=== PATIENT | male | born 1955 | race Caucasian/White ===

== ENCOUNTER 2016-11-02 08:28 | Emergency (ER) | payer MEDICAID ==
[2016-11-02] MEDS ORDERED: ALBUTEROL INH PREPACK MDI TAKEHOME ONE (09:23)
--- NOTE | 2016-11-02 09:28 | EDPHY ---
HPI/HX/ROS/PE/MDM Narrative: Chief complaint: Cough, shortness of breath, fevers, chills, body aches HPI: 60-year-old male presenting with 1 week of flu symptoms now with a worsening cough which is productive of greenish sputum. Mild shortness of breath. Does have a hacking wheezy cough. He is a smoker. Is a recovering alcoholic. Reports no alcohol for last several months. Some subjective fevers and chills. Has had some body aches. No nausea or vomiting. No chest pain. No shortness of breath. No abdominal pain. ROS: 10 point Review of Systems is negative except as noted in the HPI. Physical exam: Gen: Awake, Alert, No Distress HEENT: Ears: Bilateral TMs are normal, no erythema or bulging. External auditory canals are clear. Nose: no rhinorrhea Eyes: PERRLA, EOMI Mouth: Moist mucosa Neck: Supple, no JVD Chest: nontender, very mild expiratory wheeze in the lower lung zones, no focal rales or rhonchi Heart: S1, S2 normal, no murmur Abd: Soft, non-tender, no guarding Back: no CVA tenderness, no midline tenderness Ext: no edema, non-tender Skin: no rash Neuro: CN II-XII intact, Sensation grossly intact, Strength 5/5 in bilateral upper and lower extremities ED Course: 60-year-old male presenting with symptoms consistent with bronchitis or early pneumonia. Does not have any focal rhonchi on exam. Is in no respiratory distress. He is otherwise well-appearing. Will discharge with an albuterol inhaler. Given prescriptions for azithromycin. Will send him home with some Zofran to go as these some ice and can make him nauseated. He has a primary care physician, Dr. Smith at [facility]. I have instructed him to follow up in about 4-5 days for re-evaluation. General Time Seen by Provider: 11/02/16 09:12 Initial Vital Signs: Initial Vital Signs Temperature (C) 37.2 C 11/02/16 08:29 Heart Rate 113 H 11/02/16 08:29 Respiratory Rate 16 11/02/16 08:29 Blood Pressure 120/86 H 11/02/16 08:29 O2 Sat (%) 91 L 11/02/16 08:29 O2 Delivery Mode Room Air Allergies/Adverse Reactions: No Known Allergies Allergy (Unverified 11/02/16 08:34) Home Medications: Medication Instructions Recorded AZITHROMYCIN [Z-PACK] 250 mg PO DAILY #6 tab 11/02/16 Ondansetron Odt [Zofran Odt 4 mg 4 mg PO Q4 PRN #10 tab 11/02/16 (*)] Seroquel 11/02/16 Departure - Departure Disposition: Home, Routine, Self-Care Clinical Impression: Acute bronchitis Condition: Good Instructions: Acute Bronchitis (ED) Additional Instructions: Please take your full course of antibiotics. You may use inhaler 2 puffs every 4 hours as needed for wheeze. Always use a spacer with your inhaler. May take ibuprofen and acetaminophen as needed for fevers, chills, aches, pains. Take the nausea medication if the antibiotic makes you feel nauseated. Follow up with your primary care physician, Dr. Smith, in about 4-5 days. Referrals: Dangelo Smith MD [Primary Care Provider] - As per Instructions Prescriptions: AZITHROMYCIN [Z-PACK] 250 mg PO DAILY #6 tab Ondansetron Odt [Zofran Odt 4 mg (*)] 4 mg PO Q4 PRN #10 tab PRN Reason: nausea
[2016-11-02 09:39] VITALS: BP 134/78; PULSE 98; RESP 15; TEMP 98.1; O2SAT 93
== END 2016-11-02 09:35 | disposition home or self-care (01) ==
DX: J20.9 Acute bronchitis, unspecified (principal)

== ENCOUNTER 2017-02-21 18:47 | Emergency (ER) | payer MEDICAID ==
--- NOTE | 2017-02-21 18:54 | EDPHY ---
H & P Time Seen by Provider: 02/21/17 18:54 - Personal History Tetanus Vaccine Date: 2011 - Medical/Surgical History Hx Asthma: No Hx Chronic Respiratory Disease: Yes Hx Diabetes: No Hx Cardiac Disease: No Hx Renal Disease: No Hx Cirrhosis: No Hx Alcoholism: Yes Hx HIV/AIDS: No Hx Splenectomy or Spleen Trauma: No Other PMH: MEDICAL- COPD, ETOH, Depression,. denies PSHx - Social History Smoking Status: Heavy smoker Allergies/Adverse Reactions: No Known Allergies Allergy (Unverified 11/02/16 08:34) Home Medications: Medication Instructions Recorded AZITHROMYCIN [Z-PACK] 250 mg PO DAILY #6 tab 11/02/16 Ondansetron Odt [Zofran Odt 4 mg 4 mg PO Q4 PRN #10 tab 11/02/16 (*)] Seroquel 11/02/16 Medical Decision Making - Diagnostics Imaging Results: Imaging Impressions Head CT 02/21/17 18:59 Impression: Stable head CT with mild atrophy. Nothing acute detected. Results called to Dr. Pearson. General information for patients regarding this examination can be found at [email or web address]. If you have questions or comments about this report, please contact me at [phone] (hospital) or [phone] (cell). Imaging: Discussed imaging studies w/ rn call center Radiologist, I viewed and interpreted images myself ED Course/Re-evaluation: CHIEF COMPLAINT: headache HISTORY OF PRESENT ILLNESS: The patient is a 61 y/o male arriving via EMS complaining of a persistent headache for the last 6 weeks. He has a history of COPD, bipolar disorder, and alcohol abuse. He states he is "behaving" himself and hasn't been drinking, but later states he drank yesterday and fell down. EMS reports he was drinking alcohol as they arrived on scene. He denies weakness , paresthesias, recent illness, or trauma. REVIEW OF SYSTEMS: A 10 point review of systems was performed and is negative with the exception of the elements mentioned in the history of present illness. PHYSICAL EXAM: HR, BP, O2 Sat, RR. Temp noted General Appearance: Alert, well hydrated, malodorous, smells of alcohol, appropriate, and non-toxic appearing. Head: Atraumatic without scalp tenderness or obvious injury Eyes: Pupils equal, round, reactive to light and accommodation, EOMI, no trauma , no injection. Ears: Clear bilaterally, no perforation, normal landmarks Nose: Atraumatic, no rhinorrhea, clear. Throat: There is no erythema or exudates, no lesions, normal tonsils, mucus membranes moist. Neck: Supple, nontender, no lymphadenopathy. Respiratory: No retractions, no distress, no wheezes, and no accessory muscle use. Lungs are clear to auscultation bilaterally. Cardiovascular: Regular rate and rhythm, no murmurs, rubs, or gallops. Good capillary refill all extremities. Gastrointestinal: Abdomen is soft, nontender, non-distended, no masses, no rebound, no guarding, no peritoneal signs. Musculoskeletal: Normal active ROM of all extremities, atraumatic. Neurological: Alert, appropriate, and interactive. Nonfocal neuro exam. Skin: No rashes, good turgor, no nodules on palpation. Past medical history: COPD, alcoholism, depression and bipolar disorder Past surgical history: Denies Family history: noncontributory Social history: Sober for "a long time" but later states he drank yesterday and today, some marijuana use, denies illicit drug use. States he lives on [facility] and is not suicidal. Prior medical records reviewed including admission 01/25/16 for hypoxemia. DIAGNOSTICS/PROCEDURES/CRITICAL CARE TIME: Head CT: negative for acute process DIFFERENTIAL DIAGNOSIS: The differential diagnosis for the patient's headache included but was not limited to subarachnoid hemorrhage, migraine headache, tension headache and infectious causes such as meningitis, pharyngitis and sinusitis. MEDICAL DECISION MAKING: This is a chronically-ill appearing 61 y/o male with a history of alcoholism and COPD presenting for evaluation of a 6-week headache. This is his 7th visit for alcohol-related complaints in the last year. His last head imaging was in 2012 and showed no acute intracranial process. He smells of alcohol and is neurovascularly intact on exam. Plan for head CT and 10mg IV Reglan. Head CT negative for acute process. Patient will be discharged home with standard headache care instructions and recommendation to follow up with his PCP this week. Return precautions given. - Data Points Medications Given: Discontinued Medications Metoclopramide HCl (Reglan Injection) 10 mg IVP EDNOW ONE Stop: 02/21/17 19:06 Last Admin: 02/21/17 19:20 Dose: 10 mg Departure - Departure Disposition: Home, Routine, Self-Care Clinical Impression: Headache Qualifiers: Headache type: other headache syndrome Qualified Code(s): G44.89 - Other headache syndrome Condition: Good Instructions: General Headache (ED) Additional Instructions: Decrease alcohol intake. Follow up with your primary care provider for continued symptoms over the next 2-3 days. Return to the ED for any worsening of condition. Referrals: Patient,NotPresent [Unknown] - As per Instructions [facility],. [Clinic] - As per Instructions Report Scribed for: Fareed Pearson Report Scribed by: Ofe Garcia Date of Report: 02/21/17 Time of Report: 18:59
[2017-02-21] MEDS ORDERED: METOCLOPRAMIDE 10 MG/2 ML VIAL IVP ONE (19:05)
[2017-02-21] MEDS ORDERED: ONDANSETRON 4 MG/2 ML VIAL IVP ONE (19:30)
[2017-02-21] MEDS ORDERED: ONDANSETRON 4 MG/2 ML VIAL ONE (19:30)
[2017-02-21 19:59] VITALS: BP 140/87; PULSE 98; RESP 18; O2SAT 93
== END 2017-02-21 19:59 | disposition home or self-care (01) ==
LOC: EDUNIT#
DX: G44.89 Other headache syndrome (principal); J44.9 Chronic obstructive pulmonary disease, unspecified; F17.200 Nicotine dependence, unspecified, uncomplicated
CPT/HCPCS: 96374; J2405; J2765

== ENCOUNTER 2017-02-25 04:20 | Emergency (ER) | payer MEDICAID ==
[2017-02-25 04:33] VITALS: TEMP 97.9
[2017-02-25 04:55] LABS: % IMMATURE GRANULYOCYTES 0.2 % (0.0-1.1); ABSOLUTE IMMATURE GRANULOCYTES 0.01 10^3/uL (0.00-0.10); ADD DIFF? NO; ADD MORPH? NO; ADD SCAN? NO; ATYPICAL LYMPHOCYTE FLAG 30 (0-99); FRAGMENT RBC FLAG 0 (0-99); HEMATOCRIT 52.5 % (40.0-51.0); HEMOGLOBIN 17.9 g/dL (13.7-17.5); LEFT SHIFT FLG 0 (0-99); LIPEMIA HEMOLYSIS FLAG 90 (0-99); MEAN CELL HEMOGLOBIN 29.7 pg (27.9-34.1); MEAN CELL HEMOGLOBIN CONCENTR. 34.1 g/dL (32.4-36.7); MEAN CELL VOLUME 87.2 fL (81.5-99.8); MEAN PLATELET VOLUME 9.5 fL (8.7-11.7); PLATELET CLUMPS FLAG 0 (0-99); PLATELET COUNT 260 10^3/uL (150-400); RED BLOOD CELL COUNT 6.02 10^6/uL (4.40-6.38); RED CELL DISTRIBUTION WIDTH 14.7 % (11.5-15.2)
[2017-02-25] MEDS ORDERED: chlordiazePOXIDE 25 MG CAP ONE (04:56)
[2017-02-25 05:07] LABS: ANION GAP 19 mEq/L (8-16); CARBON DIOXIDE 21 mEq/l (22-31); CHLORIDE 104 mEq/L (97-110); CREATININE 0.6 mg/dL (0.7-1.3); ETHANOL SERUM 170 mg/dL (0-10); GLOMERULAR FILTRATION RATE > 60; GLUCOSE 95 mg/dL (70-100); POTASSIUM 4.1 mEq/L (3.5-5.2); SODIUM 144 mEq/L (134-144)
[2017-02-25] MEDS ORDERED: ONDANSETRON DISINTEGRATING 4 MG TAB ONE (06:19)
--- NOTE | 2017-02-25 07:15 | EDPHY ---
H & P Stated Complaint: depression-ETOH Source: Patient Exam Limitations: Intoxication - Personal History Current Tetanus Diphtheria and Acellular Pertussis (TDAP): Yes Tetanus Vaccine Date: 2011 - Medical/Surgical History Hx Asthma: No Hx Chronic Respiratory Disease: Yes Hx Diabetes: No Hx Cardiac Disease: No Hx Renal Disease: No Hx Cirrhosis: No Hx Alcoholism: Yes Hx HIV/AIDS: No Hx Splenectomy or Spleen Trauma: No Other PMH: MEDICAL- COPD, ETOH, Depression,. denies PSHx - Social History Smoking Status: Heavy smoker Time Seen by Provider: 02/25/17 04:27 HPI/ROS: HPI The patient presents alcohol intoxication and concern for worsening depression, brought in by ambulance. Over the last 1 week he has been on a drinking binge, drinking about a pt of hard alcohol a day. He says he is feeling miserable and very depressed about his situation. He feels as if he is letting every 1 down. He has been off of his Seroquel for the last 1 week. He is followed by [facility] and has been hospitalized in a psychiatric hospital previously. He is followed by a psychiatrist Dr. Alanis (sp?). He denies any homicidality. He denies any auditory or visual hallucinations. REVIEW OF SYSTEMS Constitutional: No fever, no chills. Eyes: No discharge. ENT: No sore throat. Cardiovascular: No chest pain, no palpitations. Respiratory: No cough, no shortness of breath. Gastrointestinal: No abdominal pain, no vomiting. Genitourinary: No hematuria. Musculoskeletal: No back pain. Skin: No rashes. Neurological: No headache. PMHx: Depression, COPD Soc Hx: Alcohol abuse, resides at the correction in [facility] PHYSICAL General Appearance: Alert, weeping Eyes: Pupils equal and round no pallor or injection ENT, Mouth: Mucous membranes moist Respiratory: There are no retractions, lungs are clear to auscultation Cardiovascular: Regular rate and rhythm Gastrointestinal: Abdomen is soft and non-tender, no masses, bowel sounds normal Neurological: A&O, moves all extremities Skin: Warm and dry, no rashes Musculoskeletal: Neck is supple non tender Extremities: symmetrical, full range of motion Psychiatric: Patient is oriented X 3, there is no agitation (Riguzzi,Jenna) Constitutional: Initial Vital Signs Temperature (C) 36.6 C 02/25/17 04:32 Heart Rate 82 02/25/17 04:32 Respiratory Rate 16 02/25/17 04:32 Blood Pressure 141/111 H 02/25/17 04:32 O2 Sat (%) 86 L 02/25/17 04:32 O2 Delivery Mode Room Air O2 (L/minute) 2 Allergies/Adverse Reactions: No Known Allergies Allergy (Unverified 02/25/17 04:31) Home Medications: Medication Instructions Recorded Seroquel 11/02/16 Medical Decision Making ED Course/Re-evaluation: 0 700: The patient is signed out to me at change of shift by Dr. Gunn. The patient is stable. 925: The patient is feeling anxious. He is given Ativan. Patient was evaluated by [facility]. After their evaluation they felt he could be safely discharged home. He does have follow-up. Patient comfortable this plan. He is given warnings prior to leaving. (Jacqui Pastrana) Differential Diagnosis: This is a 61-year-old man with COPD, depression, alcohol abuse resides at the correction who presents with worsening depressions symptoms, feeling hopeless and miserable in the setting of alcohol use. On exam, he is not exhibiting any signs or symptoms of alcohol withdrawal. Differential diagnosis includes suicidal ideation due to depression, alcohol intoxication, polysubstance abuse. In the emergency room, basic labs were checked. The patient's alcohol level was found to be elevated. He requests to be evaluated by the mental health team. At approximately 7:30 a.m., the case will be signed out to the oncoming provider Dr. Pastrana. He is awaiting a urine toxicology screen and assessment by the mental health team. (Jenna Gunn) - Data Points Laboratory Results: Laboratory Results 02/25/17 04:45 02/25/17 04:45 02/25/17 02/25/17 02/25/17 08:20 04:45 04:45 WBC 6.40 10^3/uL 10^3/uL (3.80-9.50) RBC 6.02 10^6/uL 10^6/uL (4.40-6.38) Hgb 17.9 g/dL H g/dL (13.7-17.5) Hct 52.5 % H % (40.0-51.0) MCV 87.2 fL fL (81.5-99.8) MCH 29.7 pg pg (27.9-34.1) MCHC 34.1 g/dL g/dL (32.4-36.7) RDW 14.7 % % (11.5-15.2) Plt Count 260 10^3/uL 10^3/uL (150-400) MPV 9.5 fL fL (8.7-11.7) Neut % (Auto) 50.4 % % (39.3-74.2) Lymph % (Auto) 37.5 % % (15.0-45.0) [place] % (Auto) 9.7 % % (4.5-13.0) Eos % (Auto) 0.9 % % (0.6-7.6) Baso % (Auto) 1.3 % % (0.3-1.7) Nucleat RBC Rel Count 0.0 % % (0.0-0.2) Absolute Neuts (auto) 3.23 10^3/uL 10^3/uL (1.70-6.50) Absolute Lymphs (auto) 2.40 10^3/uL 10^3/uL (1.00-3.00) Absolute Monos (auto) 0.62 10^3/uL 10^3/uL (0.30-0.80) Absolute Eos (auto) 0.06 10^3/uL 10^3/uL (0.03-0.40) Absolute Basos (auto) 0.08 10^3/uL 10^3/uL (0.02-0.10) Absolute Nucleated RBC 0.00 10^3/uL 10^3/uL (0-0.01) Immature Gran % 0.2 % % (0.0-1.1) Immature Gran # 0.01 10^3/uL 10^3/uL (0.00-0.10) Sodium 144 mEq/L mEq/L (134-144) Potassium 4.1 mEq/L mEq/L (3.5-5.2) Chloride 104 mEq/L mEq/L (97-110) Carbon Dioxide 21 mEq/l L mEq/l (22-31) Anion Gap 19 mEq/L H mEq/L (8-16) BUN 17 mg/dL mg/dL (7-23) Creatinine 0.6 mg/dL L mg/dL (0.7-1.3) Estimated GFR > 60 Glucose 95 mg/dL mg/dL (70-100) Calcium 9.0 mg/dL mg/dL (8.5-10.4) Urine Opiates Screen NEGATIVE (NEGATIVE) Urine Barbiturates NEGATIVE (NEGATIVE) Ur Phencyclidine Scrn NEGATIVE (NEGATIVE) Ur Amphetamine Screen NEGATIVE (NEGATIVE) U Benzodiazepines Scrn NEGATIVE (NEGATIVE) Urine Cocaine Screen NEGATIVE (NEGATIVE) U Marijuana (THC) Screen NON-NEGATIVE H (NEGATIVE) Ethyl Alcohol 170 mg/dL H mg/dL (0-10) Medications Given: Discontinued Medications Lorazepam (Ativan) 1 mg PO EDNOW ONE Stop: 02/25/17 09:30 Last Admin: 02/25/17 09:33 Dose: 1 mg Departure - Departure Disposition: Home, Routine, Self-Care Clinical Impression: Alcohol intoxication Qualifiers: Complication of substance-induced condition: uncomplicated Qualified Code(s): F10.920 - Alcohol use, unspecified with intoxication, uncomplicated Condition: Good Instructions: Alcohol Intoxication (ED) Additional Instructions: Return with increased anxiety, depression, feeling 20 harm herself. Referrals: Dangelo Smith MD [Primary Care Provider] - 2-3 days without fail
[2017-02-25 07:54] VITALS: BP 149/94; PULSE 96; RESP 18; O2SAT 90
[2017-02-25] MEDS ORDERED: LORazepam 1 MG TAB PO ONE (09:29)
[2017-02-25] MEDS ORDERED: chlordiazePOXIDE 25 MG CAP PO ONE (13:22)
== END 2017-02-25 13:50 | disposition home or self-care (01) ==
LOC: EDUNIT#
DX: F10.920 Alcohol use, unspecified with intoxication, uncomplicated (principal); F17.200 Nicotine dependence, unspecified, uncomplicated; J44.9 Chronic obstructive pulmonary disease, unspecified
CPT/HCPCS: 80305; G0480

== ENCOUNTER 2017-05-23 02:10 | Emergency (ER) | payer MEDICAID ==
--- NOTE | 2017-05-23 02:13 | EDPHY ---
H & P HPI/ROS: HPI CHIEF COMPLAINT: "I feel like I am going to alcohol withdrawal" "I need to sleep" HISTORY OF PRESENT ILLNESS: This patient very pleasant 61-year-old male, he is an alcoholic, he drinks every day. He states his last drink was yesterday. He feels like he is going to alcohol withdrawal. Feels nauseous. He has not any vomiting. He denies chest pain or shortness of breath. He states he has not slept in 5 days due to daily alcohol use. Past Medical History: COPD , alcohol abuse, alcoholism, bipolar disorder Past Surgical History: No recent surgical history Social History: Daily alcohol use, daily tobacco use, denies illicit drugs Family History: Noncontributory ROS REVIEW OF SYSTEMS: A comprehensive 10 point review of systems is otherwise negative aside from elements mentioned in the history of present illness. Exam Constitutional smells of alcohol, triage nursing summary reviewed, vital signs reviewed, awake/alert. Eyes normal conjunctivae and sclera, EOMI, PERRLA. HENT normal inspection, atraumatic, moist mucus membranes, no epistaxis, neck supple/ no meningismus, no raccoon eyes. Respiratory clear to auscultation bilaterally, normal breath sounds, no respiratory distress, no wheezing. Cardiovascular rate normal, regular rhythm, no murmur, no edema, distal pulses normal. Gastrointestinal soft, non-tender, no rebound, no guarding, normal bowel sounds, no distension, no pulsatile mass. Genitourinary no CVA tenderness. Musculoskeletal no midline vertebral tenderness, full range of motion, no calf swelling, no tenderness of extremities, no meningismus, good pulses, neurovascularly intact. Skin pink, warm, & dry, no rash, skin atraumatic. Neurologic awake, alert and oriented x 3, AAOx3, moves all 4 extremities equally, motor intact, sensory intact, CN II-XII intact, normal cerebellar, normal vision, normal speech. Psychiatric normal mood/affect. Heme/Lymph/Immune no lymphadenopathy. Differential Diagnosis: Includes but is not limited to in a particular order acute alcohol intoxication, alcohol withdrawal, electrolyte disturbance dehydration, anxiety Medical Decision Making: Plan for this patient IV establishment IV fluid bolus Zofran 4 mg for nausea, check electrolytes, check alcohol level. Ativan for anxiety and withdrawal. Re-evaluation: 0331AM: Re-evaluation of this patient. No acute distress. Resting comfortably. Feels better after IV Ativan IV fluids. Has no complaints. Feels comfortable being discharged he understands refrain from drinking alcohol. Serum alcohol level elevated. He is clinically sober. Stable gait. No ataxia. Source: Patient, EMS - Personal History Tetanus Vaccine Date: 2011 - Medical/Surgical History Hx Asthma: No Hx Chronic Respiratory Disease: Yes Hx Diabetes: No Hx Cardiac Disease: No Hx Renal Disease: No Hx Cirrhosis: No Hx Alcoholism: Yes Hx HIV/AIDS: No Hx Splenectomy or Spleen Trauma: No Other PMH: MEDICAL- COPD, ETOH, Depression,. denies PSHx - Social History Smoking Status: Heavy smoker Constitutional: Initial Vital Signs Temperature (C) 36.6 C 05/23/17 02:14 Heart Rate 103 H 05/23/17 02:14 Respiratory Rate 16 05/23/17 02:14 Blood Pressure 138/79 H 05/23/17 02:14 O2 Sat (%) 98 05/23/17 02:14 O2 Delivery Mode Room Air Allergies/Adverse Reactions: No Known Allergies Allergy (Unverified 02/25/17 04:31) Home Medications: Medication Instructions Recorded Seroquel 11/02/16 Medical Decision Making - Data Points Laboratory Results: Laboratory Results 05/23/17 02:15 05/23/17 02:15 Sodium 144 mEq/L mEq/L (134-144) Potassium 4.0 mEq/L mEq/L (3.5-5.2) Chloride 102 mEq/L mEq/L (97-110) Carbon Dioxide 23 mEq/l mEq/l (22-31) Anion Gap 19 mEq/L H mEq/L (8-16) BUN 19 mg/dL mg/dL (7-23) Creatinine 0.7 mg/dL mg/dL (0.7-1.3) Estimated GFR > 60 Glucose 103 mg/dL H mg/dL (70-100) Calcium 9.0 mg/dL mg/dL (8.5-10.4) Ethyl Alcohol 265 mg/dL H mg/dL (0-10) Medications Given: Discontinued Medications Sodium Chloride (Ns) 1,000 mls @ 3,000 mls/hr IV ONCE ONE Stop: 05/23/17 02:40 Last Admin: 05/23/17 02:27 Dose: 1,000 mls Lorazepam (Ativan Injection) 1 mg IVP EDNOW ONE Stop: 05/23/17 02:19 Last Admin: 05/23/17 02:26 Dose: 1 mg Ondansetron HCl (Zofran) 4 mg IVP EDNOW ONE Stop: 05/23/17 02:15 Last Admin: 05/23/17 02:23 Dose: 4 mg Departure - Departure Disposition: Home, Routine, Self-Care Clinical Impression: Alcohol intoxication Qualifiers: Complication of substance-induced condition: uncomplicated Qualified Code(s): F10.920 - Alcohol use, unspecified with intoxication, uncomplicated Condition: Good Instructions: Alcohol Intoxication (ED) Referrals: Dangelo Smith MD [Primary Care Provider] - As per Instructions
[2017-05-23] MEDS ORDERED: ONDANSETRON 4 MG/2 ML VIAL IVP ONE (02:14)
[2017-05-23] MEDS ORDERED: ONDANSETRON 4 MG/2 ML VIAL ONE (02:14)
[2017-05-23] MEDS ORDERED: LORazepam 2 MG/ML INJ IVP ONE (02:18)
[2017-05-23 02:20] VITALS: TEMP 97.9
[2017-05-23] MEDS ORDERED: NS 1,000 ML IV ONE (02:21)
[2017-05-23 03:25] LABS: ANION GAP 19 mEq/L (8-16); CARBON DIOXIDE 23 mEq/l (22-31); CHLORIDE 102 mEq/L (97-110); CREATININE 0.7 mg/dL (0.7-1.3); ETHANOL SERUM 265 mg/dL (0-10); GLOMERULAR FILTRATION RATE > 60; GLUCOSE 103 mg/dL (70-100); SODIUM 144 mEq/L (134-144)
[2017-05-23] MEDS ORDERED: ONDANSETRON DISINTEGRATING 4 MG TAB PO ONE (05:16)
[2017-05-23 05:51] VITALS: BP 132/77; PULSE 88; RESP 18; O2SAT 96
== END 2017-05-23 05:50 | disposition home or self-care (01) ==
LOC: EDUNIT#
DX: F10.920 Alcohol use, unspecified with intoxication, uncomplicated (principal); J44.9 Chronic obstructive pulmonary disease, unspecified; F17.200 Nicotine dependence, unspecified, uncomplicated
CPT/HCPCS: 96374; G0480; J2060; J2405

== ENCOUNTER 2017-07-01 08:41 | Observation (INO) | payer MEDICAID ==
[2017-07-01] MEDS ORDERED: NS 1,000 ML IV ONE ×2 (08:55→12:20)
[2017-07-01] MEDS ORDERED: METOCLOPRAMIDE 10 MG/2 ML VIAL IVP ONE (09:13)
[2017-07-01] MEDS ORDERED: LORazepam 2 MG/ML INJ IVP ONE (09:13)
--- NOTE | 2017-07-01 09:17 | CPEKG ---
Heart Rate: 127 RR Interval: 472 P-R Interval: 140 QRSD Interval: 76 QT Interval: 300 QTC Interval: 437 P [place]: 72 QRS [place]: 53 T Wave [place]: 62 EKG Severity - OTHERWISE NORMAL ECG - EKG Impression: SINUS TACHYCARDIA Preliminary Awaiting MD Review
--- NOTE | 2017-07-01 09:22 | EDPHY ---
General Narrative: CHIEF COMPLAINT: Headache, nausea vomiting HISTORY OF PRESENT ILLNESS: Patient complains of headache, nausea and vomiting started late last night. He reports drinking [place] water because he is currently homeless. He said that overnight the symptoms started. They were gradual onset. Constant duration. Now rated as severe. He has been vomiting but no diarrhea. No bloody emesis. No bloody stools. No chest pain today but did have some chest pain yesterday. Occasional cough. No trauma or injury. No leave eating factors. No position of comfort. No neck pain or stiffness. No other associated complaints or modifying factors. REVIEW OF SYSTEMS: Ten systems reviewed and are negative unless otherwise noted in the HPI PCP: Dr. Smith SPECIALISTS: None PAST MEDICAL HISTORY: COPD, depression PAST SURGICAL HISTORY: None SOCIAL HISTORY: The smoker. Occasional alcohol. No illicit substance use. Currently lives at [facility] FAMILY HISTORY: Noncontributory EXAMINATION General Appearance: Alert, no distress Head: normocephalic, atraumatic. No outward signs of trauma. No ecchymosis. No Rainey sign or raccoon eyes Eyes: Pupils equal and round, no conjunctival pallor or injection ENT, Mouth: Mucous membranes moist. Uvula midline. Airway widely patent Neck: Normal inspection, supple, non-tender. Painless range of motion all planes. No meningismus or rigidity Respiratory: Scattered rhonchi. No diminishment, crackles or retractions. No distress. Cardiovascular: Tachycardic rate. Regular rhythm. No murmur. Gastrointestinal: Abdomen is soft and nondistended. There is mild tenderness in all 4 quadrants. No tympany. No rigidity. No CVA tenderness. No guarding. Back: non-tender, no bony abnormalities Neurological: GCS 15. A&O, nonfocal, normal gait Skin: Warm and dry, no rash. No petechiae or purpura Extremities: Nontender, no pedal edema. Symmetric range of motion. No evidence of DVT Psychiatric: Mood and affect normal DIFFERENTIAL DIAGNOSES: Including but not limited to sepsis, enteritis, colitis, diverticulitis, dysentery, gastritis, cholecystitis MDM: 9:10 a.m. Headache with nausea and vomiting after drinking [place] water yesterday. The patient denies being an alcoholic, but the EMS crew reports that they felt that he was by history of seen him. His heart rate was 130 beats per minute. Respiratory rate was 20. His respiratory rate was 1 away from meeting SIRS criteria. Although he does not technically meet SIRS criteria, I have ordered lactic acid and blood cultures due to the high heart rate. He is not febrile. He is not hypotensive. There is no meningismus on examination. His abdominal exam is benign. He mentioned chest pain last evening, thus I have ordered EKG and troponin. He has no chest pain at this time. Laboratory studies and chest x-ray are pending. I have ordered IV Ativan, IV fluid, IV Reglan and Benadryl for the headache. 9:50 a.m. Lactic acid is elevated at 4.5. We will administer the appropriate sepsis bolus of IV fluid, and recheck. 10:29 a.m. The patient's initial CBC was recheck to the laboratory, thus a recollect was necessary. This is just returned and there is a leukocytosis of 22. I have thus ordered CT scan of the abdomen pelvis and urinalysis with culture. I have re-evaluated the patient at this time. His headache is significantly improved and nearly resolved. IV fluids still infusing and we will recheck a lactic acid. 10:31 a.m. Notified by radiologist Dr. Junior. CT scan of the head reveals no acute findings. Atrophy and no significant change from previous CT. 11:00 a.m. Patient re-evaluated. He is resting comfortably but remains tachycardic. IV fluid still infusing. There is a leukocytosis, thus we have ordered Invanz for empiric coverage. Chest x-ray is unremarkable as read by me. 11:25 a.m. Contacted by radiologist Dr. Junior. There are no acute findings on the CT scan of the abdomen pelvis. There is incidental note of adrenal hyperplasia with outpatient follow-up recommended. I have informed the patient of this and re-evaluated. His headache continues to feel resolved. He has no neck pain or stiffness. He is in no acute distress. 12:15 p.m. Repeat lactic acid after 2300 mL as of saline is 1.5. Proceed with admission as he continues to be tachycardic without a definite source of the possible sepsis. He is in no acute distress. He is normotensive. He is not encephalopathic. 12:19 p.m. Case discussed with Dr. Hurtado. He would like the patient to be admitted to a med surge bed to Dr. Argueta. He requests that we continue IVF. Patient has been admitted in stable condition. He remains normotensive, with alert. No acute distress. - Diagnostics EKG: I reviewed patient's EKG. See [employer] system for interpretation Imaging Results: Imaging Impressions Chest X-Ray 07/01/17 09:13 Impression: 1. Bronchitis/airways disease. 2. No definite focal pneumonia. Head CT 07/01/17 09:14 Impression: No evidence for acute intracranial abnormality. Stable chronic findings as above. Results called and discussed with Jarad Stratton PA-C on July 01, 2017 at 10: [address] 07/01/17 10:28 Impression: 1. Mild diverticulosis sigmoid colon without evidence for diverticulitis. No CT findings for appendicitis. 2. Probable adrenal hyperplasia more predominant on the left. 3. Fatty infiltration of the liver. 4. Other chronic findings as above. Results called and discussed with Jarad Stratton PA-C, at 1129 hours 01 July 2017. - History History Review: I reviewed the patient's medical records Smoking Status: Heavy smoker - Objective Vital Signs: Initial Vital Signs Temperature (C) 97.9 F 07/01/17 08:50 Heart Rate 130 H 07/01/17 08:50 Respiratory Rate 20 07/01/17 08:50 Blood Pressure 150/92 H 07/01/17 08:50 O2 Sat (%) 94 07/01/17 08:50 O2 Delivery Mode Nasal Cannula O2 (L/minute) 2 Allergies/Adverse Reactions: No Known Allergies Allergy (Unverified 02/25/17 04:31) Home Medications: Medication Instructions Recorded QUEtiapine FUMARATE [Seroquel 200 200 mg PO HS 11/02/16 mg (*)] Ibuprofen [Motrin (*)] 200 mg PO DAILY PRN 07/01/17 Ipratropium/Albuterol [Combivent 1 inh IH BID PRN 07/01/17 Respimat Inhal Dow[place](*)] Laboratory Results: Laboratory Results 07/01/17 09:10 07/01/17 09:05 07/01/17 07/01/17 07/01/17 11:40 10:45 09:41 WBC RBC Hgb Hct MCV MCH MCHC RDW Plt Count MPV Neut % (Auto) Lymph % (Auto) Swisher % (Auto) Eos % (Auto) Baso % (Auto) Nucleat RBC Rel Count Absolute Neuts (auto) Absolute Lymphs (auto) Absolute Monos (auto) Absolute Eos (auto) Absolute Basos (auto) Absolute Nucleated RBC Immature Gran % Immature Gran # PT INR APTT VBG Lactic Acid 1.5 mmol/L D mmol/L 4.5 mmol/L H mmol/L (0.7-2.1) (0.7-2.1) Sodium Potassium Chloride Carbon Dioxide Anion Gap BUN Creatinine Estimated GFR Glucose Calcium Troponin I Lipase Procalcitonin Urine Color YELLOW Urine Appearance HAZY Urine pH 5.0 (5.0-7.5) Ur Specific [place] 1.020 (1.002-1.030) Urine Protein NEGATIVE (NEGATIVE) Urine Ketones 1+ H (NEGATIVE) Urine Blood 1+ H (NEGATIVE) Urine Nitrate NEGATIVE (NEGATIVE) Urine Bilirubin NEGATIVE (NEGATIVE) Urine Urobilinogen NEGATIVE EU EU (0.2-1.0) Ur Leukocyte Esterase NEGATIVE (NEGATIVE) Urine RBC 5-10 /hpf H /hpf (0-3) Urine WBC 1-3 /hpf /hpf (0-3) Ur Epithelial Cells TRACE /lpf /lpf (NONE-1+) Hyaline Casts 15-25 /lpf H /lpf (0-1) Urine Mucus TRACE /lpf /lpf (NONE-1+) Urine Glucose NEGATIVE (NEGATIVE) Influenza A & B (PCR) 07/01/17 07/01/17 07/01/17 09:35 09:10 09:05 WBC 22.70 10^3/uL H 10^3/uL (3.80-9.50) RBC 5.59 10^6/uL 10^6/uL (4.40-6.38) Hgb 17.3 g/dL g/dL (13.7-17.5) Hct 48.8 % % (40.0-51.0) MCV 87.3 fL fL (81.5-99.8) MCH 30.9 pg pg (27.9-34.1) MCHC 35.5 g/dL g/dL (32.4-36.7) RDW 14.0 % % (11.5-15.2) Plt Count 281 10^3/uL 10^3/uL (150-400) MPV 10.1 fL fL (8.7-11.7) Neut % (Auto) 78.3 % H % (39.3-74.2) Lymph % (Auto) 13.3 % L % (15.0-45.0) Swisher % (Auto) 7.2 % % (4.5-13.0) Eos % (Auto) 0.0 % L % (0.6-7.6) Baso % (Auto) 0.3 % % (0.3-1.7) Nucleat RBC Rel Count 0.0 % % (0.0-0.2) Absolute Neuts (auto) 17.78 10^3/uL H 10^3/uL (1.70-6.50) Absolute Lymphs (auto) 3.01 10^3/uL H 10^3/uL (1.00-3.00) Absolute Monos (auto) 1.63 10^3/uL H 10^3/uL (0.30-0.80) Absolute Eos (auto) 0.00 10^3/uL L 10^3/uL (0.03-0.40) Absolute Basos (auto) 0.07 10^3/uL 10^3/uL (0.02-0.10) Absolute Nucleated RBC 0.00 10^3/uL 10^3/uL (0-0.01) Immature Gran % 0.9 % % (0.0-1.1) Immature Gran # 0.21 10^3/uL H 10^3/uL (0.00-0.10) PT 12.9 SEC SEC (12.0-15.0) INR 0.98 (0.83-1.16) APTT 20.0 SEC L SEC (23.0-38.0) VBG Lactic Acid Sodium Potassium Chloride Carbon Dioxide Anion Gap BUN Creatinine Estimated GFR Glucose Calcium Troponin I Lipase Procalcitonin Urine Color Urine Appearance Urine pH Ur Specific [place] Urine Protein Urine Ketones Urine Blood Urine Nitrate Urine Bilirubin Urine Urobilinogen Ur Leukocyte Esterase Urine RBC Urine WBC Ur Epithelial Cells Hyaline Casts Urine Mucus Urine Glucose Influenza A & B (PCR) NEGATIVE FOR FLU (NEGATIVE) 07/01/17 07/01/17 07/01/17 09:05 09:05 09:00 WBC REJ RBC TNP Hgb TNP Hct TNP MCV TNP MCH TNP MCHC TNP RDW TNP Plt Count TNP MPV TNP Neut % (Auto) TNP Lymph % (Auto) TNP Swisher % (Auto) TNP Eos % (Auto) TNP Baso % (Auto) TNP Nucleat RBC Rel Count TNP Absolute Neuts (auto) TNP Absolute Lymphs (auto) TNP Absolute Monos (auto) TNP Absolute Eos (auto) TNP Absolute Basos (auto) TNP Absolute Nucleated RBC TNP Immature Gran % TNP Immature Gran # TNP PT INR APTT VBG Lactic Acid Sodium 134 mEq/L mEq/L (134-144) Potassium 4.9 mEq/L mEq/L (3.5-5.2) Chloride 93 mEq/L L mEq/L (97-110) Carbon Dioxide 14 mEq/l L mEq/l (22-31) Anion Gap 27 mEq/L H mEq/L (8-16) BUN 29 mg/dL H mg/dL (7-23) Creatinine 1.3 mg/dL mg/dL (0.7-1.3) Estimated GFR 57 Glucose 71 mg/dL mg/dL (70-100) Calcium 9.8 mg/dL mg/dL (8.5-10.4) Troponin I 0.029 ng/mL ng/mL (0.000-0.034) Lipase 48 IU/L IU/L (23-300) Procalcitonin 1.68 ng/mL H ng/mL (0.02-0.10) Urine Color Urine Appearance Urine pH Ur Specific [place] Urine Protein Urine Ketones Urine Blood Urine Nitrate Urine Bilirubin Urine Urobilinogen Ur Leukocyte Esterase Urine RBC Urine WBC Ur Epithelial Cells Hyaline Casts Urine Mucus Urine Glucose Influenza A & B (PCR) Medications Given: Discontinued Medications Diphenhydramine HCl (Benadryl Injection) 25 mg IVP EDNOW ONE Stop: 07/01/17 09:14 Last Admin: 07/01/17 09:28 Dose: 25 mg Sodium Chloride (Ns) 1,000 mls @ 0 mls/hr IV ONCE ONE PRN Reason: Wide Open Stop: 07/01/17 08:56 Last Admin: 07/01/17 08:57 Dose: 1,000 mls Sodium Chloride (Ns) 2,300 mls @ 4,600 mls/hr 30 ml/kg infuse over 30 min ( 2300 ml) IV EDNOW ONE PRN Reason: Protocol Stop: 07/01/17 10:29 Last Admin: 07/01/17 10:07 Dose: 2,300 mls Ertapenem 1 gm/ Sodium (Chloride) 100 mls @ 200 mls/hr IV EDNOW ONE PRN Reason: Protocol Stop: 07/01/17 11:05 Last Admin: 07/01/17 11:06 Dose: 100 mls Sodium Chloride (Ns) 1,000 mls @ 0 mls/hr IV EDNOW ONE; Wide Open PRN Reason: Protocol Stop: 07/01/17 12:21 Last Admin: 07/01/17 12:25 Dose: 1,000 mls Lorazepam (Ativan Injection) 1 mg IVP EDNOW ONE Stop: 07/01/17 09:14 Last Admin: 07/01/17 09:29 Dose: 1 mg Metoclopramide HCl (Reglan Injection) 10 mg IVP EDNOW ONE Stop: 07/01/17 09:14 Last Admin: 07/01/17 09:29 Dose: 10 mg Departure - Departure Disposition: [facility] In[facility] Acute Clinical Impression: Severe sepsis, Dehydration Condition: Good
[2017-07-01 09:37] LABS: ANION GAP 27 mEq/L (8-16); CALCIUM 9.8 mg/dL (8.5-10.4); CARBON DIOXIDE 14 mEq/l (22-31); CHLORIDE 93 mEq/L (97-110); CREATININE 1.3 mg/dL (0.7-1.3); GLOMERULAR FILTRATION RATE 57; GLUCOSE 71 mg/dL (70-100); POTASSIUM 4.9 mEq/L (3.5-5.2); SODIUM 134 mEq/L (134-144)
[2017-07-01 09:38] LABS: INR 0.98 (0.83-1.16); PROTIME(PATIENT) 12.9 SEC (12.0-15.0)
[2017-07-01 09:48] LABS: TROPONIN I 0.029 ng/mL (0.000-0.034)
[2017-07-01] MEDS ORDERED: NS 2,300 ML IV ONE (10:00)
[2017-07-01 10:05] LABS: % IMMATURE GRANULYOCYTES 0.9 % (0.0-1.1); ABSOLUTE IMMATURE GRANULOCYTES 0.21 10^3/uL (0.00-0.10); ADD DIFF? NO; ADD MORPH? NO; ADD SCAN? NO; ATYPICAL LYMPHOCYTE FLAG 0 (0-99); FRAGMENT RBC FLAG 0 (0-99); HEMATOCRIT 48.8 % (40.0-51.0); HEMOGLOBIN 17.3 g/dL (13.7-17.5); LEFT SHIFT FLG 10 (0-99); LIPEMIA HEMOLYSIS FLAG 90 (0-99); MEAN CELL HEMOGLOBIN 30.9 pg (27.9-34.1); MEAN CELL HEMOGLOBIN CONCENTR. 35.5 g/dL (32.4-36.7); MEAN CELL VOLUME 87.3 fL (81.5-99.8); MEAN PLATELET VOLUME 10.1 fL (8.7-11.7); PLATELET CLUMPS FLAG 0 (0-99); PLATELET COUNT 281 10^3/uL (150-400); RED BLOOD CELL COUNT 5.59 10^6/uL (4.40-6.38)
[2017-07-01] MEDS ORDERED: ERTAPENEM 1 GM in NS 100 ML IV ONE (10:36)
[2017-07-01] MEDS ORDERED: IOPAMIDOL (ISOVUE-300) 100 ML BTL ONE (10:37)
[2017-07-01 10:41] LABS: LACGHOST ORDER
[2017-07-01 10:53] LABS: COLOR YELLOW; LEUKOCYTE ESTERASE,URINE NEGATIVE (NEGATIVE); NITRITE,URINE NEGATIVE (NEGATIVE)
[2017-07-01 11:20] LABS: HYALINE CASTS 15-25 /lpf (0-1); MUCUS TRACE /lpf (NONE-1+)
--- NOTE | 2017-07-01 14:17 | ASMTCASEMG ---
Living Arrangements What is your living Answers: Unknown arrangement? Who do you live with? Type Of Residence Stairs in Home Answers: No Environment Services Used Prior to Admission Community Services Used Answers: [facility] Prior to Admission Other Services Used Prior to Admission Notes: [facility] Case Management Evaluation Psychosocial Needs: Answers: Active Substance Abuse Notes: ETOH Behavioral Health Issue Notes: MHP Education Needs Answers: Substance Abuse Notes: ETOH abuse Counseling Discharge Plan Comments Coordination Status Comments Notes: Pt in FED for headache nausea and vomiting. ED reported indicated pt is homeless; however pt is not homeless. Pt drank at [employer] the previous night because he did not want to drive while intoxicated. He reported that he has PCP through [facility], Dr. Dangelo Smith MD. Pt was unable to call last appointment with PCP. Pt reported mental health care through [facility]. He reported that he was last seen a couple of weeks ago. He would like to have appointments scheduled prior to his discharge. DC plan TBBALEXEY to follow. Date Signed: 07/01/2017 02:16 PM Electronically Signed By:Lidia Mosquera LCSW
[2017-07-01] MEDS ORDERED: ONDANSETRON 4 MG/2 ML VIAL IVP PRN (14:24)
[2017-07-01] MEDS ORDERED: ACETAMINOPHEN 325 MG TAB PO PRN (14:24)
[2017-07-01] MEDS ORDERED: ONDANSETRON DISINTEGRATING 4 MG TAB PO PRN (14:24)
[2017-07-01] MEDS ORDERED: LORazepam 0.5 MG TAB PO PRN (14:24)
[2017-07-01] MEDS ORDERED: PROMETHAZINE HCL 25 MG/ML INJ IVP PRN (14:24)
[2017-07-01] MEDS ORDERED: LORazepam 2 MG/ML INJ IVP PRN (14:24)
[2017-07-01] MEDS ORDERED: oxyCODONE IR 5 MG TAB PO PRN (14:24)
[2017-07-01] MEDS ORDERED: IPRATROPIUM/ALBUTEROL 4GM MDI IH PRN (14:27)
[2017-07-01] MEDS ORDERED: IBUPROFEN 200 MG TAB PO PRN (14:27)
[2017-07-01] MEDS: NS 1,000 ML IV SCH ×2 (15:53→23:41)
[2017-07-01 16:49] LABS: ALBUMIN 5.2 g/dL (3.5-5.0); BILIRUBIN,TOTAL 0.8 mg/dL (0.1-1.4); BILIRUBIN-CONJUGATED 0.5 mg/dL (0.0-0.5); BILIRUBIN-UNCONJUGATED 0.3 mg/dL (0.0-1.1)
[2017-07-01] MEDS: METOCLOPRAMIDE 10 MG/2 ML VIAL IVP SCH ×2 (17:08→23:41)
[2017-07-01] MEDS: LORazepam 0.5 MG TAB PO PRN (17:08)
--- NOTE | 2017-07-01 17:08 | GHP ---
[f rep st] HISTORY AND PHYSICAL DATE OF ADMISSION: 07/01/2017 CHIEF COMPLAINT: Headache, nausea, vomiting. HISTORY: This is a 61-year-old man with past medical history that includes alcohol abuse and homeles sness, who presents with several hours of headache, as well as nausea, vomiting that developed after he got intoxicated and then drank [place] water. Patient notes that prior to that he believes he was feeling well. He states he drank only a small amount of vodka, but became heavily intoxicated which was surprising to him. He states he felt "crazy" and was afraid to drive, and therefore staye d in his car, and when he became thirsty decided to drink from the [place]. Shortly after that he deve loped nausea and vomiting. This continued until arrival to the emergency department this morning at 9 a.m. He has been given Ativan, Reglan, and Benadryl, and at this time has minimal symptoms remaini ng. He notes his headache has essentially completely resolved, and he does not feel nauseous any jose magui. He states in terms of his alcohol abuse, he has never had withdrawal in the past. Although the re are comments of concerns for withdrawal on previous admissions here to the hospital. He denies an y breathing difficulties. He denies any urinary changes. He denies any oral lesions or rash. PAST MEDICAL HISTORY: 1. COPD. 2. Alcohol abuse. 3. Depression and bipolar disorder. 4. History of an upper GI bleed thought to be secondary to Jayla-Arreguin tear. PAST SURGICAL HISTORY: Tonsillectomy. FAMILY HISTORY: Mother had lung cancer and stroke, at age 72. SOCIAL HISTORY: Patient is homeless, but currently resides at the homeless skilled nursing on [facility] . He is a heavy smoker, states he smokes between 1-2 packs per day. He has been a heavy drinker in t he past, previously reporting 2-3 pints of hard liquor per day, but states that currently he only dri nks intermittently. REVIEW OF SYSTEMS: 10-point review of systems obtained and negative, except as per HPI. MEDICATIONS: Include: 1. Seroquel. 2. Combivent. 3. Ibuprofen. ALLERGIES: No known drug allergies. PHYSICAL EXAMINATION: VITAL SIGNS: BP 148/79, heart rate 118, respiratory rate 17, O2 sat is 90% on room air. Temperature is 37.0. GENERAL APPEARANCE: This is a slightly disheveled man. He is awak e and alert. He is in no acute distress. EYES: Anicteric. HENT: Oropharynx clear, MMM. CARDIOVASCULAR: Tachy, regular, no MRG. PULMONARY: CTA bilaterally. Decreased breath sounds throu ghout. ABDOMEN: Soft. Bowel sounds are present. He is nontender, nondistended. EXTREMITIES: No clubbing, cyanosis, or edema. SKIN: Warm, dry, well perfused, no obvious rashes. NEURO/PSYCH: Jerod ented and appropriate, pleasant. CLINICAL DATA: Labs reviewed. Significant for a white blood cell count of 22.7, hematocrit of 48.8, platelets of 281. Coags are normal. Lactic acid was originally 4.5, now 1.5. BUN of 29 and creati nine 1.3. UA shows 5-10 red blood cells and hyaline casts. Chest x-ray personally reviewed and interpreted: Shows chronic bronchitis. No acute findings. Head CT is negative for any acute abnormalities. Abdominal CT shows fatty liver. There is also evidence for mild diverticulosis of the sigmoid colon. ASSESSMENT AND PLAN: This is a 61-year-old man with past medical history of chronic obstructive pulm onary disease, alcohol abuse, and homelessness, who presents with nausea, vomiting, and headache, as well as systemic inflammatory response syndrome. 1. Nausea, vomiting. Suspect this was water-borne enteritis related to drinking [place] water. His s ymptoms seem to have resolved. He has not had any associated diarrhea. He did appear volume down on initial presentation, is being appropriately fluid resuscitated. 2. Systemic inflammatory response syndrome. Patient with significant leukocytosis and tachycardia w ithout a clear source of infection. Cultures have been drawn. He was given a dose of ertapenem, and we will monitor off antibiotics for the time being. Suspect this may be related to dehydration and enteritis as per above. 3. Acute kidney injury. Again, suspect this is a prerenal kidney injury in the setting of nausea, v omiting, intoxication, and poor by mouth intake. Intravenous fluids will be continued overnight, and recheck in the morning. 4. Alcohol abuse. Currently does not have any evidence of withdrawal. He states he has never had a ny issues with withdrawal in the past. We will monitor without Clinical [facility] Withdrawal Assessm ent for the time being. 5. Chronic obstructive pulmonary disease, chronic without evidence of acute exacerbation. We will c ontinue his Combivent. 6. Tobacco dependence. The patient declines nicotine patch or gum. 7. Disposition: Observation status. I suspect he will need less than 48-hour stay for evaluation a nd management of above. Patient is new to my care. Old records reviewed, summarized as per HPI and past medical history. Ca re plan reviewed with ER physician, including plans for observation overnight. /[id number]/MODL
[2017-07-01 19:43] LABS: PHENCYCLIDINE URINE BCH < 6 ng/ml (NEGATIVE); PHENCYCLIDINE URINE BCH NEGATIVE (NEGATIVE); TETRAHYDROCANNABINOL URINE 41 ng/mL (NEGATIVE); TETRAHYDROCANNABINOL URINE NEGATIVE (NEGATIVE)
[2017-07-01] MEDS ORDERED: QUEtiapine FUMARATE 200 MG TAB PO SCH (21:00)
[2017-07-02 04:53] LABS: % IMMATURE GRANULYOCYTES 0.3 % (0.0-1.1); ABSOLUTE IMMATURE GRANULOCYTES 0.03 10^3/uL (0.00-0.10); ADD DIFF? NO; ADD MORPH? NO; ADD SCAN? NO; ATYPICAL LYMPHOCYTE FLAG 0 (0-99); FRAGMENT RBC FLAG 0 (0-99); HEMOGLOBIN 14.3 g/dL (13.7-17.5); LEFT SHIFT FLG 0 (0-99); LIPEMIA HEMOLYSIS FLAG 90 (0-99); MEAN CELL HEMOGLOBIN 30.3 pg (27.9-34.1); MEAN PLATELET VOLUME 10.8 fL (8.7-11.7); PLATELET CLUMPS FLAG 0 (0-99); PLATELET COUNT 215 10^3/uL (150-400); RED BLOOD CELL COUNT 4.72 10^6/uL (4.40-6.38); RED CELL DISTRIBUTION WIDTH 13.8 % (11.5-15.2)
[2017-07-02 05:24] LABS: ANION GAP 6 mEq/L (8-16); CALCIUM 7.9 mg/dL (8.5-10.4); CARBON DIOXIDE 24 mEq/l (22-31); CHLORIDE 107 mEq/L (97-110); CREATININE 0.8 mg/dL (0.7-1.3); GLOMERULAR FILTRATION RATE > 60; GLUCOSE 83 mg/dL (70-100); POTASSIUM 4.2 mEq/L (3.5-5.2); SODIUM 137 mEq/L (134-144)
[2017-07-02] MEDS: METOCLOPRAMIDE 10 MG/2 ML VIAL IVP SCH (05:28)
[2017-07-02 07:37] VITALS: BP 130/62; PULSE 89; RESP 21; TEMP 98.3
[2017-07-02] MEDS: NS 1,000 ML IV SCH (07:50)
[2017-07-02] MEDS: LORazepam 0.5 MG TAB PO PRN (08:01)
[2017-07-02] MEDS ORDERED: ERTAPENEM 1 GM in NS 100 ML IV SCH (09:00)
[2017-07-02 10:30] VITALS: O2SAT 81
--- NOTE | 2017-07-02 10:36 | PDHOMEO2F ---
Home Oxygen Face to Face Home Orders: I certify that a physician or a nurse practitioner or physician's quality assistant has had a [id number] encounter with this patient on the date of this order due to the diagnosis listed, which relates to the primary reason the patient requires home oxygen. Alternative treatments have been tried, or considered, and deemed ineffective. It is anticipated that supplemental oxygen will result in improvement with treatment. Home oxygen qualifying diagnosis: copd SpO2 on room air (%): 81 Frequency of home oxygen needed: continuous Home oxygen liters per minute: 2 Home oxygen delivery device: nasal cannula Concentrator: Yes E-tanks for mobility and back up: Yes If ordering portable O2, is the patient mobile in the home?: Yes I certify that, based on these findings, the home oxygen is medically necessary for this patient for the following length of time. Length of time home oxygen needed: 1 month
--- NOTE | 2017-07-02 11:02 | ASMTCMCOM ---
CM Note CM Note Notes: CM spoke w/ Juwan RN and Dr. Argueta regarding d/c POC. OT has cleared pt to be independent. CM met w/ pt for dispo planning. Pt requested a bus voucher. CM provided pt w/ a bus voucher. Pt will most likely d/c w/out any needs. CM available for changes. Date Signed: 07/02/2017 11:01 AM Electronically Signed By:JEFFREY Krishna
--- NOTE | 2017-07-02 16:24 | ASDISCHSUM ---
Discharge Information Plan Status:Home with No Needs Medically Cleared to Leave:07/02/2017 Discharge Date:07/02/2017 12:50 PM CM D/C Disposition: ADT D/C Disposition:Home, Routine, Self-Care Projected Discharge Date:07/02/2017 12:00 AM Transportation at D/C: Discharge Delay Reason: Follow-Up Date:07/02/2017 12:00 AM Discharge Slot: Final Diagnosis: Placement Information Patient Contact Information Contact Name:MAHESHHORACIO Relationship: Address: Home Phone: Work Phone: City: Alternate Phone: State/Zip Code: Email: Financial Information Financial Class:MD Primary Plan Desc:MEDICA[employer] HEALTH FIRST PROCUREMENT ANALYST Primary Plan Number:[id number] Secondary Plan Desc: Secondary Plan Number: Assessment Information [facility] Initial CM Assessment Living Arrangements What is your living Answers: Unknown arrangement? Who do you live with? Type Of Residence Stairs in Home Answers: No Environment Services Used Prior to Admission Community Services Used Answers: [facility] Prior to Admission Other Services Used Prior to Admission Notes: [facility] Case Management Evaluation Psychosocial Needs: Answers: Active Substance Abuse Notes: ETOH Behavioral Health Issue Notes: P Education Needs Answers: Substance Abuse Notes: ETOH abuse Counseling Discharge Plan Comments Coordination Status Comments Notes: Pt in FED for headache nausea and vomiting. ED reported indicated pt is homeless; however pt is not homeless. Pt drank at [employer] the previous night because he did not want to drive while intoxicated. He reported that he has PCP through [facility], Dr. Dangelo Smith MD. Pt was unable to call last appointment with PCP. Pt reported mental health care through P. He reported that he was last seen a couple of weeks ago. He would like to have appointments scheduled prior to his discharge. DC plan ALEXEY AKINS to follow. Date Signed: 07/01/2017 02:16 PM Electronically Signed By:Lidia Mosquera LCSW [facility] CM Progress Note CM Note CM Note Notes: CM spoke w/ SG Echeverria and Dr. Argueta regarding d/c POC. OT has cleared pt to be independent. CM met w/ pt for dispo planning. Pt requested a bus voucher. CM provided pt w/ a bus voucher. Pt will most likely d/c w/out any needs. CM available for changes. Date Signed: 07/02/2017 11:01 AM Electronically Signed By:JEFFREY Krishna Intervention Information
--- NOTE | 2017-07-02 17:19 | PDDCSUM ---
Discharge Summary Discharge Summary: Dates of service 07/01-07/02/17 Consultations/procedures: none Hospital course by problem: # n/v: resolved, related to drinking [place] water # sirs: suspect related mostly to dehyrdation, no real s/s of infection # lactic acidosis: related to volume depletion # acute hypoxic respiratory failure: with underlying copd, discharging home on supplemental o2 # copd: without clear e/o acute exacerbation but is requiring o2 as above, continue op BDs # etoh abuse: without e/o withdrawal, does not plan to quit drinking DC home f/u with pcp > 35 min spent in dc more than half in coordination of care
== END 2017-07-02 12:50 | disposition home or self-care (01) ==
LOC: EDUNIT# → F2W 15:20
PROVIDERS: ADMIT Internal Medicine; ATTEND Internal Medicine
DX: R11.2 Nausea with vomiting, unspecified (principal); D72.829 Elevated white blood cell count, unspecified; R00.0 Tachycardia, unspecified; E86.0 Dehydration; N17.9 Acute kidney failure, unspecified; E87.2 Acidosis; F10.10 Alcohol abuse, uncomplicated; F32.9 Major depressive disorder, single episode, unspecified; J44.9 Chronic obstructive pulmonary disease, unspecified; Z59.0 Homelessness; F17.210 Nicotine dependence, cigarettes, uncomplicated; Z80.1 Family history of malignant neoplasm of trachea, bronchus and lung
CPT/HCPCS: 70450; 71020; 74177; 93005; 96361; 96365; 96374; 96375; 97165; 99285; G0378; 80307; G0480; J1200; J1335; J2060; J2765; Q9967